=== PATIENT | male | born 1935 | race Caucasian/White ===

== ENCOUNTER → 2017-09-17 | Outpatient (REF) ==
[~2017-09-17] MED LIST: DIABETA1.25 MG PO; NORCO 325 MG-51 TAB PO
[2017-09-17 16:29] LABS: PSA-TOTAL 4.21 ng/mL (0-4)
[2017-09-17 17:05] LABS: THYROID STIMULATING HORMONE 3.51 uIU/mL (0.465-4.680)
== END ==
LOC: ZLAB.WCH 15:39
PROVIDERS: Internal Medicine
DX: Z01.89 Encounter for other specified special examinations (principal)
CPT/HCPCS: G0103

== ENCOUNTER → 2017-09-23 | Outpatient (CLI) | payer MEDICARE, BC | LOC: COL.RAD 11:05 | DX: T18.9XXA Foreign body of alimentary tract, part unspecified, initial encounter (principal) ==

== ENCOUNTER → 2017-09-24 | Outpatient (REF) | LOC: ZLAB.WCH 17:59 | DX: Z01.89 Encounter for other specified special examinations (principal) ==

== ENCOUNTER 2017-11-05 08:21 | Inpatient (IN) | payer MEDICARE, BC ==
[2017-11-05] VITALS (11 sets, daily range): BP systolic 96–144; BP diastolic 56–78; PULSE 61–97; TEMP 98–99
[~2017-11-05] VITALS: Ht 175.3 cm; Wt 58.2 kg
[~2017-11-05 08:21] MED LIST changes: +AMARYL 2MG T2 MG/TAB PO; +GLUCOPHAGE500 MG/TAB PO
[2017-11-05] MEDS ORDERED: MS CONTIN 330 MG/TAB PO (08:46)
[2017-11-06 00:04] VITALS: BP 120/68; PULSE 74; TEMP 98.4
[2017-11-06 04:00] VITALS: BP 95/49; PULSE 64; TEMP 98.1
[2017-11-06 07:23] VITALS: BP 107/56; PULSE 58; TEMP 98.8
[2017-11-06 12:00] VITALS: BP 113/58; PULSE 62; TEMP 98.5
[2017-11-06 15:52] VITALS: BP 101/57; PULSE 57; TEMP 97.9
[2017-11-06 20:00] VITALS: BP 113/62; PULSE 58; TEMP 98.3
[2017-11-07 04:00] VITALS: BP 111/57; PULSE 60; TEMP 98.7
[2017-11-07 08:15] VITALS: BP 97/48; PULSE 54; TEMP 98.7
[2017-11-07 11:41] VITALS: BP 112/60; PULSE 57; TEMP 98.5
[2017-11-07] MEDS ORDERED: BACTRIM DS 8001 TAB PO (14:53)
[2017-11-07] MEDS ORDERED: NORCO 325 MG-51 TAB PO (14:55)
[2017-11-07] MEDS ORDERED: SENOKOT S 50 MG1 TAB PO (14:55)
[2017-11-07] MEDS ORDERED: PYRIDIUM 100MG100 MG PO (14:56)
== END 2017-11-07 16:20 | disposition home health service (06) | DRG 713 ==
LOC: SDCO 08:21 → SURG 09:10 → SDCO 09:45 → SURG 12:50 → SDCO 11-07 16:20
PROVIDERS: Urology
PROC: 0VB08ZZ Excision of Prostate, Via Natural or Artificial Opening Endoscopic (ICD-10-PCS; principal; 2017-11-05 09:45)
DX: N40.1 Benign prostatic hyperplasia with lower urinary tract symptoms (principal); N13.8 Other obstructive and reflux uropathy; R33.8 Other retention of urine; E11.42 Type 2 diabetes mellitus with diabetic polyneuropathy; Z79.4 Long term (current) use of insulin
CPT/HCPCS: OP; J0690; J1100; J1815; J2250; J2405; J2704; J3010; J7030

== ENCOUNTER → 2018-02-15 | Outpatient (REF) ==
[~2018-02-15] MED LIST changes: +BACTRIM DS 8001 TAB PO; +MS CONTIN 330 MG/TAB PO; +PYRIDIUM 100MG100 MG PO; +SENOKOT S 50 MG1 TAB PO
== END ==
LOC: ZLAB.WCH 18:12
DX: Z01.89 Encounter for other specified special examinations (principal)

== ENCOUNTER → 2018-05-31 | Outpatient (REF) | LOC: ZLAB.WCH 18:27 | DX: Z01.89 Encounter for other specified special examinations (principal) ==